=== PATIENT | male | born 1955 | race Caucasian/White ===

== ENCOUNTER → 2016-05-30 | Outpatient (REF) | payer OTHER ==
[~2016-05-30] MED LIST: AGGR1CAP PO; ASPI1TAB PO; ASPI81TA11 PO; CALC25TA PO; CEPH2CAP PO; LEVA750T PO; LEVO750T33 PO; LIPI80TA PO; LISI10TA4 PO; METO25TAB PO; MULTCAP PO; OMEP40CA2 PO; POTA10CA PO; PRAV40TA PO; PRIL20CA9 PO; PROTPAK PO; VITMTA PO; ZOFR8TAB PO
[2016-05-30 13:52] LABS: INR 0.9
== END | disposition home or self-care (01) ==
LOC: M LAB REF 12:47
PROVIDERS: ATTEND Internal Medicine Medical Oncology
DX: C34.90 Malignant neoplasm of unspecified part of unspecified bronchus or lung (principal)

== ENCOUNTER → 2016-06-01 | Outpatient (CLI) | payer OTHER ==
--- NOTE | 2016-06-01 10:28 | REP ---
MR BRAIN WITHOUT AND WITH CONTRAST: HISTORY: Lung carcinoma. Contrast: ProHance 9.4 mL. COMPARISON: 12/31/2013 A small areas of increased signal intensity on T2-weighted images is present in the left basal ganglia and centrum semiovale. This represents an old lacunar infarction. Scattered punctate areas of increased signal intensity on T2-weighted images are present in the periventricular and subcortical white matter and erika. This represents small vessel ischemic disease. There is no intraparenchymal hemorrhage, infarct, mass or midline shift. The ventricular system and cortical sulci are dilated consistent with minimal volume loss. There is no extracerebral collection. An enhancing lesion 1.2 cm in width is present in the left parietal bone. There is no intracranial extension. Minimal mucosal thickening is present in the right mastoid air cells. The left mastoid air cells and sinuses are clear. IMPRESSION: 1. Old left basal ganglia and centrum semiovale lacunar infarction. 2. Minimal small vessel ischemic disease. 3. Minimal volume loss. 4. 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 Signed by Dante Webb MD 06/01/2016 10:30 A
== END | disposition home or self-care (01) ==
LOC: M RAD 08:26
PROVIDERS: ATTEND Internal Medicine Medical Oncology
DX: C34.90 Malignant neoplasm of unspecified part of unspecified bronchus or lung (principal); I73.9 Peripheral vascular disease, unspecified; Z86.73 Personal history of transient ischemic attack (TIA), and cerebral infarction without residual deficits; C79.51 Secondary malignant neoplasm of bone
CPT/HCPCS: 70553; A9576